=== PATIENT | female | born 1995 | race African-American/Black ===

== ENCOUNTER 2018-01-16 17:06 | Emergency (ER) | payer OTHER ==
[~2018-01-16] VITALS: Ht 162.6 cm; Wt 59.0 kg
--- NOTE | 2018-01-16 17:38 | ED GI/GU/ABDOMINAL COMPLAINT ---
History of Present Illness General Chief Complaint: General Adult Stated Complaint: ANAL BLEEDING "MY VAGINA FEELS FUNNY" Source: patient Exam Limitations: no limitations Vital Signs & Intake/Output Vital Signs & Intake/Output Vital Signs Date Time Temp Pulse Resp B/P B/P Pulse O2 O2 Flow FiO2 Mean Ox Delivery Rate 01/16 1712 98.2 73 18 104/73 98 Room Air Allergies Coded Allergies: strawberry (Severe, ANAPHYLAXIS 01/16/18) Reconcile Medications Ciprofloxacin HCl (Cipro) 500 MG TABLET 1 TAB PO BID PRN UTI Fluconazole (Diflucan) 150 MG TABLET 1 TAB PO ONCE VAGINITIS Lidocaine/Hydrocortisone AC (Lidocaine-Hc 3-0.5% Cream) 3 %-0.5 % CREAM..G. 1 NERIS TOP TID PRN HEMMORHOIDS Triage Note: 22 YO FEMALE TO TRIAGE FOR EVAL OF RECTAL DISCOMFORT AFTER HAVEING A BOWEL MOVEMENT. STATES BLOOD WAS BRIGHT RED AND ON THE TOILET PAPER. STATES SHE ALSO HAS BURNING WITH URINATION X1 WEEK. DENIES ABD PAIN. DENIES VAGINAL DISCHARGE. ALSO C/O "MY VAGINA FEELS FUNNY" STATES HER VAGINA APPEARS TO HAVE A ITCHY ?RASH. Triage Nurses Notes Reviewed? yes ? N Is pt currently ? No Onset: Gradual Duration: constant Timing: recent history Quality/Severity: burning, moderate Severity Numbers: 5 Radiation: vaginal Activities at Onset: none HPI: Patient is a 22-year-old female with concerns of a one-week history of increased frequency of urination and dysuria with a three-day history of vaginal irritation and redness and a one-day history after having a bowel movement of blood on the tissue. Denies any melena or bright red blood in the toilet or the stool. Denies any nausea vomiting fever chills vaginal discharge or bleeding or hematuria. Denies any abdominal pain or back pain. Denies any dyspareunia Past History Travel History Traveled to [place] past 21 day No Medical History Any Pertinent Medical History? 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 No Review of Systems Review of Systems Constitutional: Reports: no symptoms. EENTM: Reports: no symptoms. Respiratory: Reports: no symptoms. Cardiovascular: Reports: no symptoms. GI: Reports: see HPI. Genitourinary: Reports: see HPI. Musculoskeletal: Reports: no symptoms. Skin: Reports: no symptoms. Neurological/Psychological: Reports: no symptoms. Hematologic/Endocrine: Reports: no symptoms. Immunologic/Allergic: Reports: no symptoms. All Other Systems: Reviewed and Negative Physical Exam Physical Exam General Appearance: no apparent distress, alert Head: atraumatic Eyes: Bilateral: normal appearance. Ears, Nose, Throat, Mouth: hearing grossly normal Respiratory: normal breath sounds Gastrointestinal: normal bowel sounds, soft, non-tender Rectal: hemmorrhoids, tenderness Pelvic: normal bimanual exam, no cerv. motion tender, no masses, MILD TENDERNESS AND SWELLING OF EXTERNAL BILATERAL LABIA NONTENDER CERVIX, 12 O'CLOCK POSITION NOTED EXTERNAL TENDER hEMORRHOID Extremities: normal range of motion Neurologic/Psych: no motor/sensory deficits, awake Skin: intact, normal color, warm/dry Core Measures ACS in differential dx? No Sepsis Present: No Sepsis Focused Exam Completed? No Progress Differential Diagnosis: AAA, AMI, appendicitis, biliary colic, bowel obstruction , colon cancer, cholecystitis, diverticulitis, ectopic , endometritis, esophageal varices, gastritis, hepatitis, hernia, hemorrhoids, ischemic bowel, inflamm bowel dis, intrauterine , kidney stone, ovarian cyst, ovarian torsion, pancreatitis, PID/cervicitis, peptic ulcer, PUD/GERD, perforated viscous, SBO, threatened AB, UTI/pyelo Plan of Care: Orders Procedure Date/time Status CULTURE,URINE 01/16 171 Active URINE 01/16 171 Complete URINALYSIS 01/16 1715 Complete Laboratory Tests 01/16/18 1725: Urinalysis LIGHT H, Urine Color YEL, Urine Clarity HAZY H, Urine pH 7.0, Ur Specific Latty 1.020, Urine Protein NEG, Urine Ketones TRACE H, Urine Nitrite NEG, Urine Bilirubin NEG, Urine Urobilinogen 0.2, Ur Leukocyte Esterase NEG, Ur Microscopic SEDIMENT EXAMINED, Urine RBC 1-3, Urine WBC RARE, Ur Epithelial Cells RARE, Urine Bacteria RARE H, Urine Mucus RARE, Urine Hemoglobin TRACE- INTACT, Urine Glucose NEG, Urine Test NEGATIVE Microbiology 06/12 1725 URINE ROUT: Urine Culture - RECD Initial examination patient is resting completely bedside nontender abdomen external labia noted mild tenderness and swelling no cervical motion tenderness no concerns of PID patient has concerns of vaginitis Patient also has concerns of external hemorrhoids however upon palpation the hemorrhoid did recur to bleed bleeding was controlled prior to arrival Rectal exam was unremarkable no blood noted from the rectal vault Patient upon discharge looks well no apparent distress patient has nontender abdomen She was strongly advised to follow up and establish OUTSOLE TACKER and colorectal surgery for her chief complaints Initial ED EKG: none Departure Departure Disposition: HOME OR SELF CARE Condition: Stable Clinical Impression Primary Impression: Vaginitis Secondary Impressions: External hemorrhoid, bleeding, UTI (urinary tract infection) Referrals: Andrews Betancourt Jr., DO Patient Has No Primary Care Dr (PCP/Family) Neil MICHAEL,Erin Kraft Additional Instructions: As discussed begin the prescription of the hydrocortisone viscous lidocaine cream APPLY DIRECTED TO YOUR hemorrhoids, begin the prescription of Diflucan for your symptoms, prescription is waiting MARIAM MARTÍNEZ. Tomorrow please follow up and establish OUTSOLE TACKER and colorectal surgeon Dr. Betancourt for further evaluation treatment. If symptoms worsen or if he develop new concerning symptom return to emergency room Begin the prescription of ciprofloxacin as directed for symptoms. Departure Forms: Customer Survey General Discharge Information Prescriptions: Current Visit Scripts Lidocaine/Hydrocortisone AC (Lidocaine-Hc 3-0.5% Cream) 1 NERIS TOP TID PRN HEMMORHOIDS #1 TUBE Fluconazole (Diflucan) 1 TAB PO ONCE #1 TAB Ciprofloxacin HCl (Cipro) 1 TAB PO BID PRN UTI #14 TAB
[2018-01-16] MEDS ORDERED: LIDOCAINE-HC 3-07 G2 TOP (17:53)
[2018-01-16] MEDS ORDERED: DIFLUCAN150 M1 PO (17:54)
[2018-01-16] MEDS ORDERED: CIPRO500 M1 PO (17:57)
[2018-01-16 18:31] VITALS: BP 106/68
== END 2018-01-16 18:32 ==
LOC: ERH 17:06
DX: N76.0 Acute vaginitis (principal); K64.4 Residual hemorrhoidal skin tags; N39.0 Urinary tract infection, site not specified
CPT/HCPCS: 81001; 81025; 87086

== ENCOUNTER 2018-02-13 19:11 | Emergency (ER) | payer OTHER ==
[~2018-02-13] VITALS: Ht 165.1 cm; Wt 66.2 kg
[~2018-02-13 19:11] MED LIST: CIPRO500 M1 PO; DIFLUCAN150 M1 PO; LIDOCAINE-HC 3-07 G2 TOP; VIBRAMYCIN100 MG PO
[2018-02-13 19:21] VITALS: BP 114/76
[2018-02-13 21:14] LABS: ABSOLUTE BASOPHIL COUNT 0 /CUMM (0.0-0.2); ABSOLUTE EOSINOPHIL COUNT 0.1 /CUMM (0.0-0.7); ABSOLUTE GRANULOCYTE CT 4.7 /CUMM (1.4-6.5); ABSOLUTE LYMPH COUNT 1.7 /CUMM (1.2-3.4); ABSOLUTE MONOCYTE COUNT 0.6 /CUMM (0.10-0.60); BASOPHIL % 0.4 % (0.0-2.0); EOSINOPHIL % 1.4 % (0-5); GRANULOCYTE % 65.9 % (42.2-75.2); HEMATOCRIT 38.2 % (37-47); MEAN CORPUSCULAR HGB 31.6 PG (27.0-31.0); MEAN CORPUSCULAR HGB CONC 33.8 G/DL (33.0-37.0); MEAN CORPUSCULAR VOLUME 93.5 FL (81.0-99.0); MEAN PLATELET VOLUME 9.3 FL (7.4-10.4); PLATELET COUNT 205 /CUMM (130-400); RBC DISTRIBUTION WIDTH 14.4 % (11.5-14.5); RED BLOOD CELL CT 4.08 /CUMM (4.20-5.40); WHITE BLOOD CELL COUNT 7.2 /CUMM (4.8-10.8)
--- NOTE | 2018-02-13 21:21 | ED GI/GU/ABDOMINAL COMPLAINT ---
History of Present Illness General Chief Complaint: Nausea, Vomiting, Diarrhea Stated Complaint: "I HAVE THE STOMACH BUG" Source: patient Exam Limitations: no limitations Vital Signs & Intake/Output Vital Signs & Intake/Output Vital Signs Date Time Temp Pulse Resp B/P B/P Pulse O2 O2 Flow FiO2 Mean Ox Delivery Rate 02/13 1921 98.7 103 18 114/76 97 Room Air Allergies Coded Allergies: strawberry (Severe, ANAPHYLAXIS 01/16/18) Reconcile Medications Ciprofloxacin HCl (Cipro) 500 MG TABLET 1 TAB PO BID PRN UTI Doxycycline Hyclate (Vibramycin) 100 MG CAPSULE 1 CAP PO BID LABIAL ABRASION Doxycycline Hyclate (Vibramycin) 100 MG CAPSULE 1 CAP PO BID LABIAL ABRASION Fluconazole (Diflucan) 150 MG TABLET 1 TAB PO ONCE VAGINITIS Lidocaine/Hydrocortisone AC (Lidocaine-Hc 3-0.5% Cream) 3 %-0.5 % CREAM..G. 1 NERIS TOP TID PRN HEMMORHOIDS Triage Note: PT FROM HOME C/O N/V X2 EPISODES SINCE THIS AM. PT STATES SHE AWOKE THIS MORNING WITH CRAMPING IN LOWER PELVIC AREA. PT ABLE TO TOLERATE LIQUIDS. PT STATES UNKNOWN IF , WHEN ASKED PT LOOKED AT PARTNER AND BEGAN TO LAUGH. PT PROVIDED WITH URINE SPECIMEN CUP. VSS. NO ACTIVE SIGNS OF NAUSEA OR VOMITING. Triage Nurses Notes Reviewed? yes LMP (ages 10-50): unknown ? N Is pt currently ? No Onset: Abrupt Duration: day(s): (2), changing over time, continues in ED Timing: single episode today Quality/Severity: cramping Severity Numbers: 6 Location: generalized abdomen Radiation: no radiation Activities at Onset: none Prior Abdominal Problems: similar symptoms Sexually Active: Yes Last Time You Were Sexual: less than 2 months ago Use of Protection: No HPI: 22-year-old female presents for evaluation of lower abdominal cramping and nausea. She reports symptoms have been present for several days. No vomiting no diarrhea no chest pain or shortness of breath no urinary symptoms or vaginal discharge or vaginal bleeding. She is concerned about . (Shaka Chery) Past History Travel History Traveled to [place] past 21 day No Medical History Any Pertinent Medical History? 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 No (Shaka Chery) Review of Systems Review of Systems Constitutional: Reports: no symptoms. EENTM: Reports: no symptoms. Respiratory: Reports: no symptoms. Cardiovascular: Reports: no symptoms. GI: Reports: see HPI, abdominal pain, nausea. Genitourinary: Reports: no symptoms. Musculoskeletal: Reports: no symptoms. Skin: Reports: no symptoms. Neurological/Psychological: Reports: no symptoms. Hematologic/Endocrine: Reports: no symptoms. Immunologic/Allergic: Reports: no symptoms. All Other Systems: Reviewed and Negative (Shaka Chery) Physical Exam Physical Exam General Appearance: well developed/nourished, no apparent distress, alert, awake Head: atraumatic, normal appearance Eyes: Bilateral: normal appearance, PERRL, EOMI. Ears, Nose, Throat, Mouth: hearing grossly normal, moist mucous membrane Neck: normal inspection, supple, full range of motion Respiratory: normal breath sounds, chest non-tender, no respiratory distress, lungs clear Cardiovascular: regular rate/rhythm, normal peripheral pulses Peripheral Pulses: 2+ radial (R), 2+ radial (L) Gastrointestinal: normal bowel sounds, soft, no organomegaly, tenderness ( BILATERAL LOWER ABDOMEN ) Back: normal inspection, normal range of motion Extremities: normal range of motion Neurologic/Psych: no motor/sensory deficits, awake, alert, oriented x 3, normal gait Skin: intact, normal color, warm/dry Core Measures ACS in differential dx? No Sepsis Present: No Sepsis Focused Exam Completed? No (Shaka Chery) Progress Differential Diagnosis: AAA, AMI, ectopic , gastritis, inflamm bowel dis, intrauterine , kidney stone, ovarian cyst, ovarian torsion, pancreatitis, PID/cervicitis, peptic ulcer, PUD/GERD, threatened AB, UTI/pyelo Plan of Care: Orders Procedure Date/time Status URINALYSIS 02/13 2045 Active LIPASE 02/13 2045 Complete COMPREHENSIVE METABOLIC PANEL 02/13 2045 Complete CBC WITHOUT DIFFERENTIAL 02/13 2045 Complete URINE 02/13 1927 Complete Laboratory Tests 07/10/18 2005: Anion Gap 13, Estimated GFR > 60, BUN/Creatinine Ratio 18.3, Glucose 79, Calcium 10.2, Total Bilirubin 0.4, AST 23, ALT 14, Alkaline Phosphatase 50, Total Protein 8.0, Albumin 4.3, Globulin 3.7, Albumin/Globulin Ratio 1.2, Lipase 117, CBC w Diff NO MAN DIFF REQ, RBC 4.08 L, MCV 93.5, MCH 31.6 H, MCHC 33.8, RDW 14.4, MPV 9.3, Gran % 65.9, Lymphocytes % 23.4, Monocytes % 8.9, Eosinophils % 1.4, Basophils % 0.4, Absolute Granulocytes 4.7, Absolute Lymphocytes 1.7, Absolute Monocytes 0.6, Absolute Eosinophils 0.1, Absolute Basophils 0 02/13/181934: Urine Test NEGATIVE Patient is reporting lower abdominal pain. Also nausea no vomiting. She is concerned about her urinalysis is negative. Labs fluids Zofran Toradol ordered. CT scan ordered. Patient reports that she needs to leave she needs to go home to attend to something. Discussed with patient about the potential risks of leaving before the evaluation is complete. Patient admits that she only came in for a test and does not have any actual symptoms. The test was negative advised patient to follow up with her primary care doctor and INDUSTRIAL ACCOUNTANT doctor. Discussed return precautions patient agrees the plan Initial ED EKG: none (Shaka Chery) Departure Departure Disposition: HOME OR SELF CARE Condition: Stable Clinical Impression Primary Impression: Abdominal pain Qualifiers: Abdominal location: unspecified location Qualified Code: R10.9 - Unspecified abdominal pain Referrals: Patient Has No Primary Care Dr (PCP/Family) Additional Instructions: You are leaving before YOUR evaluation is complete. This could lead to negative health effects that include permissible later . It is recommended he follow-up with primary care doctor and INDUSTRIAL ACCOUNTANT doctor. Return anytime with any concerns. Departure Forms: Customer Survey General Discharge Information (Shaka Chery) PA/ADVANCED MANUFACTURING ENGINEER Co-Sign Statement Statement: ED Attending supervision documentation- [] I saw and evaluated the patient. I have also reviewed all the pertinent lab results and diagnostic results. I agree with the findings and the plan of care as documented in the PA's/ADVANCED MANUFACTURING ENGINEER's documentation. [x] I have reviewed the ED Record and agree with the PA's/ADVANCED MANUFACTURING ENGINEER's documentation. [] Additions or exceptions (if any) to the PAs/ADVANCED MANUFACTURING ENGINEER's note and plan are summarized below: [] (Rivera Lara DO)
== END 2018-02-13 21:28 ==
LOC: ERH 19:11
PROVIDERS: Physician Assistant Medical
DX: R10.84 Generalized abdominal pain (principal)
CPT/HCPCS: 81025